=== PATIENT | male | born 2000 | race Two or more races ===

== ENCOUNTER 2024-05-31 20:52 | Emergency (ER) | payer OTHER ==
[~2024-05-31] VITALS: Ht 172.7 cm; Wt 63.5 kg
[2024-05-31 21:01] VITALS: BP 118/89; TEMP 96.7; O2SAT 97
== END 2024-05-31 21:37 | disposition home or self-care (01) ==
LOC: ER 20:54
DX: Z72.821 Inadequate sleep hygiene (principal); Z59.00 Homelessness unspecified

== ENCOUNTER 2024-11-19 00:53 | Emergency (ER) | payer OTHER, BC, MEDICAID | END 2024-11-19 04:53 | disposition left against medical advice (07) | LOC: ER 00:55 | DX: Z53.21 Procedure and treatment not carried out due to patient leaving prior to being seen by health care provider (principal) ==